=== PATIENT | female | born 2000 | race Hispanic/Latino ===

== ENCOUNTER 2021-11-14 16:37 | Emergency (ER) | payer BC ==
[~2021-11-14] VITALS: Ht 157.5 cm; Wt 113.4 kg
[2021-11-14] MEDS ORDERED: IOPAMIDOL 370 MG/ML 100 ML INFUS..BTL INJ ONE (18:03)
[2021-11-14] MEDS ORDERED: KETOROLAC TROMETHAMINE 30 MG/ML VIAL IV STA (18:22)
[2021-11-14] MEDS ORDERED: KETOROLAC TROMETHAMINE 30 MG/ML VIAL ONE (18:31)
[2021-11-14 20:12] VITALS: BP 119/63
== END 2021-11-14 20:12 | disposition home or self-care (01) ==
LOC: FSED 16:55
DX: R09.1 Pleurisy (principal); R06.02 Shortness of breath; M54.2 Cervicalgia; R10.31 Right lower quadrant pain; E03.9 Hypothyroidism, unspecified; F41.9 Anxiety disorder, unspecified
CPT/HCPCS: 71260; 80048; 80076; 81003; 81025; 85025; 85379; 99283; J1885; Q9967